=== PATIENT | male | born 1990 | race Caucasian/White ===

== ENCOUNTER 2016-04-20 04:50 | Emergency (ER) | payer BC ==
[2016-04-20 05:08] LABS: BASO % 0.4 % (0-6); EOS % 0.8 % (0-6); GRAN % 51.9 % (47-80); HEMATOCRIT 48.2 % (42.0-52.0); LYMPH % 38.7 % (16-45); MEAN CELL VOLUME 87.6 fl (81-97); MEAN CORPUSCULAR HEMOGLOBIN 30.9 pg (27-33); MEAN CORPUSCULAR HGB CONC 35.3 g/dl (32-36); MEAN PLATELET VOLUME 9.7 fl (7.4-10.4); MONO % 8.2 % (0-9); PLATELET COUNT 373 K/uL (130-400); RED CELL DISTRIBUTION WIDTH 12.8 % (11.5-14.5); WHITE BLOOD COUNT W/O DIFF 13.2 K/uL (4.2-12.2)
[2016-04-20] MEDS ORDERED: ADENOSINE 12 MG/4 ML VIAL IVP ONE (05:08)
[2016-04-20] MEDS ORDERED: ADENOSINE 6 MG/2 ML VIAL IVP ONE (05:08)
[2016-04-20] MEDS ORDERED: DILTIAZEM 25MG/5ML VIAL IV ONE ×2 (05:09→05:28)
[2016-04-20 05:15] LABS: ANION GAP 19.9 (7-16); BLOOD UREA NITROGEN 9 mg/dL (9-20); CARBON DIOXIDE 23.1 mmol/L (22-30); CREATINE PHOSPHOKINASE 429 U/L (55-170); CREATININE 1.1 mg/dL (0.66-1.25); EST GLOMERULAR FILTRATION RATE > 60 ml/min; GLUCOSE,RANDOM 82 mg/dL (70-110)
--- NOTE | 2016-04-20 05:15 | Emergency Department Record ---
History of Present Illness - General Chief Complaint: Chest Pain Stated Complaint: CHEST PAIN Time Seen by Provider: 04/20/16 05:08 Source: Patient Mode of Arrival: Ambulatory - History of Present Illness Initial Comments: The patient states he was awakened from sleep with a funny feeling in his chest like his heart was racing around 4:30 as well as left anterior and sternal chest pain. Earlier in the evening he had several drinks of hard liquor before 10:30. He became nauseated and vomited once earlier around 12 midnight. He takes adderall 20 mg twice daily to help him concentrate, the last dose which was 9 a.m. ad then 9:30 a.m. He typically takes both doses earlier in the day so he can still sleep at night. He denies taking extra pills of it, or any other additional medications. He denies smoking, htn, DM, elevated cholesterol. His Dad just had a heart attack and a stent about 2 weeks ago and is doing well. He has an uncle and a grandfather with heart disease also. MD Complaint: Chest pain, Other (rapid HB) Onset/Timin -: Hour(s) Onset: Awoke with symptoms Pain Location: Substernal, Left chest Pain Radiation: None Quality: Aching, Tightness Consistency: Constant Improves With: Nothing Worsens With: Nothing Anginal Symptoms: Nausea, Vomiting Treatments Prior to Arrival: None - Related Data Home Medications Medication Instructions Recorded Confirmed Last Taken Dextroamphetamine/Amphetamine 40 mg PO DAILY 04/20/16 04/20/16 04/19/16 [Adderall] Allergies Allergy/AdvReac Type Severity Reaction Status Date / Time No Known Drug Allergies Allergy Verified 04/20/16 05:03 Travel Screening - Travel/Exposure Within Last 30 Days Have you traveled within the last 30 days?: No - Travel/Exposure Within Last Year Have you traveled outside the [place] in the last year?: No - Additonal Travel Details Have you been exposed to anyone with a communicable illness?: No - Travel Symptoms Symptom Screening: None Past Medical History - SOCIAL HISTORY Smoking Status: Never smoker Alcohol Use: None Drug Use: None - RESPIRATORY Hx Respiratory Disorders: No - CARDIOVASCULAR Hx Cardio Disorders: No - NEURO Hx Neuro Disorders: No - GI Hx GI Disorders: No - Hx Genitourinary Disorders: No - ENDOCRINE Hx Endocrine Disorders: No - MUSCULOSKELETAL Hx Musculoskeletal Disorders: No - PSYCH Hx Psych Problems: Yes Comment:: adhd - HEMATOLOGY/ONCOLOGY Hx Hematology/Oncology Disorders: No Family Medical History Any Significant Family History?: No Physical Exam - General General Appearance: Alert, Oriented x3, Cooperative, Moderate distress, Anxious - Head Head exam: Normal inspection - Eye Eye exam: Normal appearance, PERRL Pupils: Normal accommodation - ENT ENT exam: Normal exam, Mucous membranes dry, Normal external ear exam, Normal orophraynx, TM's normal bilaterally Ear exam: Normal external inspection. negative: External canal tenderness Nasal Exam: Normal inspection. negative: Discharge, Sinus tenderness Mouth exam: Normal external inspection, Tongue normal Teeth exam: Normal inspection. negative: Dental caries Throat exam: Normal inspection. negative: Tonsillar erythema, Tonsillar exudate - Neck Neck exam: Normal inspection, Full ROM. negative: Tenderness - Respiratory Respiratory exam: Normal lung sounds bilaterally. negative: Respiratory distress - Cardiovascular Cardiovascular Exam: Normal rhythm, Normal heart sounds, Tachycardia - GI/Abdominal GI/Abdominal exam: Soft, Normal bowel sounds. negative: Tenderness - Rectal Rectal exam: Deferred - exam: Deferred - Extremities Extremities exam: Normal inspection, Full ROM, Normal capillary refill. negative: Calf tenderness, Pedal edema, Tenderness - Back Back exam: Reports: Normal inspection, Full ROM. Denies: Muscle spasm, Rash noted, Tenderness - Neurological Neurological exam: Alert, CN II-XII intact, Normal gait, Oriented X3, Reflexes normal - Psychiatric Psychiatric exam: Normal affect, Normal mood - Skin Skin exam: Dry, Intact, Normal color, Warm Course Vital Signs 04/20/16 04:51 Pulse Rate 138 H Respiratory 28 H Rate Blood Pressure 153/96 Pulse Ox 100 - Reevaluation(s) Reevaluation #1: Patient had no response on the monitor to adenosine 6 mg or 12mg doses. Cardizem 20 mg IV has resulted in gradual slowing into the 120 range. BP has remained stable. Patient states his nausea is gone and his chest symptoms remain but he is improving. 04/20/16 05:35 04/20/16 06:08 Reevaluation #2: Heart rate is now less than 100, patient is feeling much more relaxed although fatigued. It was explained to him that he will need repeat lab draws at 9 a.m. He also now recalls that he had an episode of rapid heart rate when he was in college, one time when he sought medical attention and had an EKG. 04/20/16 06:03 04/20/16 06:09 Reevaluation #3: The patient states he wishes he could sleep but he is too wound up to sleep. His chest symptoms have nearly but not completely resolved, and he is nauseated. Ativan and zofran ordered. Also, because of his family history of heart problems he was given [facility] referral info to call in the event he is discharged home for outpatient evaluation. Care is turned over to day shift physician at 7 a.m. Repeat enzymes at 4 hours i.e. 9 a.m. 04/20/16 06:38 Medical Decision Making - Data Complexity MDM Data: Labs Ordered and/or Reviewed, X-Ray Ordered and/or Reviewed (Portable CXR: Neg per ED physician), EKG Ordered and/or Reviewed - Lab Data Result diagrams: 04/20/16 04:52 04/20/16 04:52 - EKG Data -: EKG Interpreted by Me (SVT @ 134/ minute, no prior.) Disposition Clinical Impression: Supraventricular tachycardia Forms: Patient Portal Access
[2016-04-20] MEDS ORDERED: ONDANSETRON HCL IV 4 MG/2 ML VIAL IVP ONE ×2 (05:17→06:38)
[2016-04-20 05:27] LABS: CKMB 2.8 ug/L (0-6); TROPONIN I < 0.012 ng/mL (0.00-0.034)
[2016-04-20] MEDS ORDERED: ASPIRIN 81 MG CHEWABLE TABLET PO ONE (05:27)
[2016-04-20] MEDS ORDERED: POTASSIUM CHLORIDE 20 MEQ TABLET PO ONE ×2 (05:40→05:42)
[2016-04-20] MEDS ORDERED: AL HYDROX/MAG HYDROX 30ML UD PO ONE (05:40)
[2016-04-20] MEDS ORDERED: 0.9 % SODIUM CHLORIDE 1,000 ML BAG IV ONE ×2 (05:42→06:42)
[2016-04-20 05:45] LABS: THYROID STIMULATING HORMONE 4.27 uIU/ml (0.465-4.68)
[2016-04-20 05:59] LABS: AMPHETAMINE SCREEN URINE DETECTED; BARBITURATE SCREEN URINE NOT DETECTED; BENZODIAZEPINE SCREEN URINE NOT DETECTED; COCAINE SCREEN URINE NOT DETECTED; METHADONE SCREEN URINE NOT DETECTED; METHAMPHETAMINE SCREEN NOT DETECTED; OPIATE SCREEN URINE NOT DETECTED; OXYCODONE SCREEN URINE NOT DETECTED; PHENCYCLIDINE SCREEN URINE NOT DETECTED; PROPOXYPHENE SCREEN URINE NOT DETECTED; THC SCREEN URINE NOT DETECTED; TRICYCLIC ANTIDEPRESSANT SCRN NOT DETECTED
[2016-04-20] MEDS ORDERED: LORAZEPAM 2 MG/ML VIAL IV ONE (06:37)
--- NOTE | 2016-04-20 09:09 | Emergency Department Record ---
History of Present Illness - General Chief Complaint: Chest Pain Stated Complaint: CHEST PAIN Time Seen by Provider: 04/20/16 05:08 Source: Patient Mode of Arrival: Ambulatory - History of Present Illness Initial Comments: reviewed Dr. Teixeira's chart and obtained report verbally and patient was sleeping. No chest pain and he said the chest pain went away after the heart rate slowed down. Patient was ginen two doses of adenocard 6mg and 12 mg and his heart rate went faster and than he was given cardizem and his heart rate slowed down after two boluses of cardizem 20 mg times two. Patient denies nausea now. Last night he drank about one quarter of a fifth of alcohol. He has had two fast heart episodes. First episode 3 years ago. Onset/Timin -: Hour(s) Onset: Awoke with symptoms Pain Location: Substernal, Left chest Pain Radiation: None Quality: Aching, Tightness Consistency: Constant Improves With: Nothing Worsens With: Nothing Anginal Symptoms: Nausea, Vomiting Treatments Prior to Arrival: None - Related Data Home Medications Medication Instructions Recorded Confirmed Last Taken Dextroamphetamine/Amphetamine 40 mg PO DAILY 04/20/16 04/20/16 04/19/16 [Adderall] Allergies Allergy/AdvReac Type Severity Reaction Status Date / Time No Known Drug Allergies Allergy Verified 04/20/16 05:03 Travel Screening - Travel/Exposure Within Last 30 Days Have you traveled within the last 30 days?: No - Travel/Exposure Within Last Year Have you traveled outside the [place] in the last year?: No - Additonal Travel Details Have you been exposed to anyone with a communicable illness?: No - Travel Symptoms Symptom Screening: None Review of Systems Reviewed: No additional complaints except as noted below Constitutional: Reports: As per HPI. Denies: Chills, Fever, Malaise, Night sweats, Weakness, Weight change Eyes: Reports: As per HPI. Denies: Eye discharge, Eye pain, Photophobia, Vision change ENT: Reports: As per HPI. Denies: Congestion, Dental pain, Ear pain, Epistaxis , Hearing loss, Throat pain Respiratory: Reports: As per HPI. Denies: Cough, Dyspnea, Hemoptysis, Stridor, Wheezes Cardiovascular: Reports: As per HPI, Arrhythmia, Palpitations. Denies: Chest pain, Dyspnea on exertion, Edema, Murmurs, Orthopnea, Paroxysmal nocturnal dyspnea, Rheumatic Fever, Syncope Endocrine: Reports: As per HPI. Denies: Fatigue, Heat or cold intolerance, Polydipsia, Polyuria Gastrointestinal: Reports: As per HPI. Denies: Abdominal pain, Constipation, Diarrhea, Hematemesis, Hematochezia, Melena, Nausea, Vomiting Genitourinary: Reports: As per HPI. Denies: Dysuria, Frequency, Hematuria, Incontinence, Retention, Testicular pain, Testicular mass, Urgency Musculoskeletal: Reports: As per HPI. Denies: Arthralgia, Back pain, Gout, Joint swelling, Myalgia, Neck pain Skin: Reports: As per HPI. Denies: Bruising, Change in color, Change in hair/ nails, Lesions, Pruritus, Rash Neurological: Reports: As per HPI. Denies: Abnormal gait, Confusion, Headache, Numbness, Paresthesias, Seizure, Tingling, Tremors, Vertigo, Weakness Psychiatric: Reports: As per HPI. Denies: Anxiety, Auditory hallucinations, Depression, Homicidal thoughts, Suicidal thoughts, Visual hallucinations Hematological/Lymphatic: Reports: As per HPI. Denies: Anemia, Blood Clots, Easy bleeding, Easy bruising, Swollen glands Past Medical History - SOCIAL HISTORY Smoking Status: Never smoker Alcohol Use: None Drug Use: None - RESPIRATORY Hx Respiratory Disorders: No - CARDIOVASCULAR Hx Cardio Disorders: No - NEURO Hx Neuro Disorders: No - GI Hx GI Disorders: No - Hx Genitourinary Disorders: No - ENDOCRINE Hx Endocrine Disorders: No - MUSCULOSKELETAL Hx Musculoskeletal Disorders: No - PSYCH Hx Psych Problems: Yes Comment:: adhd - HEMATOLOGY/ONCOLOGY Hx Hematology/Oncology Disorders: No Family Medical History Any Significant Family History?: No Physical Exam - General General Appearance: Alert, Oriented x3, Cooperative, No acute distress - Head Head exam: Normal inspection - Eye Eye exam: Normal appearance, PERRL Pupils: Normal accommodation - ENT ENT exam: Normal exam, Mucous membranes moist, Normal external ear exam, Normal orophraynx, TM's normal bilaterally Ear exam: Normal external inspection. negative: External canal tenderness Nasal Exam: Normal inspection. negative: Discharge, Sinus tenderness Mouth exam: Normal external inspection, Tongue normal Teeth exam: Normal inspection. negative: Dental caries Throat exam: Normal inspection. negative: Tonsillar erythema, Tonsillar exudate - Neck Neck exam: Normal inspection, Full ROM. negative: Tenderness - Respiratory Respiratory exam: Normal lung sounds bilaterally. negative: Respiratory distress - Cardiovascular Cardiovascular Exam: Regular rate, Normal rhythm, Normal heart sounds - GI/Abdominal GI/Abdominal exam: Soft, Normal bowel sounds. negative: Tenderness - Rectal Rectal exam: Deferred - exam: Deferred - Extremities Extremities exam: Normal inspection, Full ROM, Normal capillary refill. negative: Tenderness - Back Back exam: Reports: Normal inspection, Full ROM. Denies: Muscle spasm, Rash noted, Tenderness - Neurological Neurological exam: Alert, Normal gait, Oriented X3, Reflexes normal - Psychiatric Psychiatric exam: Normal affect, Normal mood - Skin Skin exam: Dry, Intact, Normal color, Warm Course Vital Signs 04/20/16 04/20/16 04/20/16 04:51 05:01 05:05 Temperature Pulse Rate 138 H Pulse Rate [ 147 H 129 H Pulse Ox Probe] Respiratory 28 H 20 20 Rate Blood Pressure 153/96 Blood Pressure 161/92 149/79 [Right Arm] Pulse Ox 100 100 100 04/20/16 04/20/16 04/20/16 05:13 05:32 05:40 Temperature 98.2 F Pulse Rate Pulse Rate [ 107 H 102 H Pulse Ox Probe] Respiratory 16 16 Rate Blood Pressure Blood Pressure 132/77 139/86 [Right Arm] Pulse Ox 100 100 04/20/16 04/20/16 04/20/16 06:00 07:28 08:20 Temperature Pulse Rate Pulse Rate [ 101 H 89 88 Pulse Ox Probe] Respiratory 16 16 16 Rate Blood Pressure Blood Pressure 150/92 125/58 136/71 [Right Arm] Pulse Ox 100 100 100 - Reevaluation(s) Reevaluation #1: patient is doing much better and his PCP is Dr. Taqueria Thrasher in [place]. 04/20/16 09:20 Reevaluation #2: second set of cardiac enzymes negative. 04/20/16 09:43 Reevaluation #3: repeat cardiac enzymes normal. 04/20/16 09:45 Medical Decision Making - Lab Data Result diagrams: 04/20/16 04:52 04/20/16 04:52 Lab Results 04/20/16 04/20/16 04/20/16 Range/Units 04:52 04:52 04:52 WBC 13.2 H (4.2-12.2) K/uL RBC 5.50 (4.40-5.70) M/uL Hgb 17.0 (14.0-18.0) gm/dl Hct 48.2 (42.0-52.0) % MCV 87.6 (81-97) fl MCH 30.9 (27-33) pg MCHC 35.3 (32-36) g/dl RDW 12.8 (11.5-14.5) % Plt Count 373 (130-400) K/uL MPV 9.7 (7.4-10.4) fl Gran % 51.9 (47-80) % Lymphocytes % 38.7 (16-45) % Monocytes % 8.2 (0-9) % Eosinophils % 0.8 (0-6) % Basophils % 0.4 (0-6) % D-Dimer 0.20 (0-0.59) mg/L FEU Sodium 142 (136-145) mmol/L Potassium 3.3 L (3.5-5.1) mmol/L Chloride 99 (98-107) mmol/L Carbon Dioxide 23.1 (22-30) mmol/L Anion Gap 19.9 H (7-16) BUN 9 (9-20) mg/dL Creatinine 1.1 (0.66-1.25) mg/dL Estimated GFR > 60 ml/min Random Glucose 82 (70-110) mg/dL Calcium 9.8 (8.5-10.1) mg/dL Creatine Kinase 429 H (55-170) U/L CK-MB (CK-2) 2.8 (0-6) ug/L Troponin I < 0.012 (0.00-0.034) ng/mL TSH 4.27 (0.465-4.68) uIU/ml Urine Opiates Screen Ur Oxycodone Screen Urine Methadone Screen Ur Propoxyphene Screen Ur Barbituates Screen Ur Tricyclics Screen Ur Phencyclidine Scrn Ur Amphetamine Screen U Methamphetamines Scrn U Benzodiazepines Scrn Urine Cocaine Screen Urine Cannabis Screen Ethyl Alcohol (0-0.010) g/dL 04/20/16 04/20/16 Range/Units 04:52 05:16 WBC (4.2-12.2) K/uL RBC (4.40-5.70) M/uL Hgb (14.0-18.0) gm/dl Hct (42.0-52.0) % MCV (81-97) fl MCH (27-33) pg MCHC (32-36) g/dl RDW (11.5-14.5) % Plt Count (130-400) K/uL MPV (7.4-10.4) fl Gran % (47-80) % Lymphocytes % (16-45) % Monocytes % (0-9) % Eosinophils % (0-6) % Basophils % (0-6) % D-Dimer (0-0.59) mg/L FEU Sodium (136-145) mmol/L Potassium (3.5-5.1) mmol/L Chloride (98-107) mmol/L Carbon Dioxide (22-30) mmol/L Anion Gap (7-16) BUN (9-20) mg/dL Creatinine (0.66-1.25) mg/dL Estimated GFR ml/min Random Glucose (70-110) mg/dL Calcium (8.5-10.1) mg/dL Creatine Kinase (55-170) U/L CK-MB (CK-2) (0-6) ug/L Troponin I (0.00-0.034) ng/mL TSH (0.465-4.68) uIU/ml Urine Opiates Screen Not detected Ur Oxycodone Screen Not detected Urine Methadone Screen Not detected Ur Propoxyphene Screen Not detected Ur Barbituates Screen Not detected Ur Tricyclics Screen Not detected Ur Phencyclidine Scrn Not detected Ur Amphetamine Screen Detected U Methamphetamines Scrn Not detected U Benzodiazepines Scrn Not detected Urine Cocaine Screen Not detected Urine Cannabis Screen Not detected Ethyl Alcohol 0.080 H (0-0.010) g/dL Disposition Clinical Impression: SVT (supraventricular tachycardia), Alcohol use disorder, mild, in controlled environment Disposition: Home, Self-Care Condition: (1) Good Instructions: Supraventricular Tachycardia (ED) Additional Instructions: No alcohol till evaluated completely on the SVT. cardiology consult ordered outpatient OK to work and only walking till evaluated by cardiology. return any more fast heart rates Forms: Patient Portal Access Time of Disposition: 09:54
[2016-04-20 09:25] LABS: CREATINE PHOSPHOKINASE 374 U/L (55-170)
[2016-04-20 09:38] LABS: CKMB 2.6 ug/L (0-6)
[2016-04-20 09:39] LABS: TROPONIN I < 0.012 ng/mL (0.00-0.034)
== END 2016-04-20 10:08 | disposition home or self-care (01) ==
LOC: ER 04:50
DX: I47.1 Supraventricular tachycardia (principal); R11.2 Nausea with vomiting, unspecified; F10.129 Alcohol abuse with intoxication, unspecified; Y90.4 Blood alcohol level of 80-99 mg/100 ml
CPT/HCPCS: 99284 ×2; 96376; 96374; 96375; 96361; 82550; 85025; 82553; 84484; 80048; 84443; 80305; 85379; 71010; 93005; 93010; G0480; J0150; J0153; J2405; J2060; 80320